=== PATIENT | female | born 1970 | race Caucasian/White ===

== ENCOUNTER 2018-11-26 09:58 | Day surgery (SDC) | payer BC ==
[2018-11-25 10:34] VITALS: BMI 19.3
--- NOTE | 2018-11-26 09:09 | P.GSHP ---
History of Present Illness H&P Date: 11/26/18 CHIEF COMPLAINT: Cholecystitis HISTORY OF PRESENT ILLNESS: The patient is a 48-year-old female who presents with history of epigastric including right upper quadrant abdominal pain. She underwent diagnostic studies for the gallbladder. Separately her clinical picture was consistent with cholecystitis. Now she presents for surgical intervention. PAST MEDICAL HISTORY: Please see list PAST SURGICAL HISTORY: Please see list MEDICATIONS: Please see list ALLERGIES: Denies. SOCIAL HISTORY: No illicit drug use or recent tobacco use FAMILY HISTORY: Pertinent for gallbladder disease REVIEW OF ORGAN SYSTEMS: CONSTITUTIONAL: No reports of fevers or chills. HEENT: Denies any troubles with the vision or hearing. ENDOCRINE: No reports of hypothyroidism. No diabetes. RESPIRATORY: No recent pneumonias. CARDIOVASCULAR: Denies chest pain or palpitations GI: No blood in stools or constipation. MUSCULOSKELETAL: Has occasional joint pain including back pain. NEURO: No seizure disorders or headaches. No recent stroke. PSYCH: No depression or suicidal ideation. HEMATOLOGIC: No personal or family history of DVTs or pulmonary emboli. PHYSICAL EXAM: VITAL SIGNS: Afebrile vital signs stable GENERAL: Well-developed pleasant in no acute distress. HEENT: No scleral icterus. Extraocular movements grossly intact. Moist buccal mucosa. NECK: Supple without lymphadenopathy. CHEST: Unlabored respirations. Equal bilateral excursions. CARDIOVASCULAR: Regular rate regular rhythm rhythm. Distal 2+ pulses. ABDOMEN: Soft, nondistended. Tender along the epigastrium and right upper quadrant. MUSCULOSKELETAL: No clubbing, cyanosis, or edema. NEURO : No focal or lateralizing signs. Cranial nerves II-12 within normal limits. PSYCH: Alert and oriented to person, place and time. SKIN: Well perfused. Good skin turgor. ASSESSMENT: 1. Epigastric and right upper quadrant abdominal pain 2. Chronic cholecystitis PLAN: 1. Will need a robotic cholecystectomy possible open. Benefits and risks were described. 2. Heparin for DVT prophylaxis 5000 units. 3. Antibiotic prophylaxis. Past Medical History Past Medical History: GERD/Reflux Additional Past Medical History / Comment(s): FREQUENT UTI'S, GALL BLADDER PAIN , UMBILICAL HERNIA. History of Any Multi-Drug Resistant Organisms: None Reported Past Surgical History: Section, Uterine Ablation Additional Past Surgical History / Comment(s): X3 Past Anesthesia/Blood Transfusion Reactions: No Reported Reaction Past Psychological History: No Psychological Hx Reported Smoking Status: Current every day smoker Past Alcohol Use History: None Reported Additional Past Alcohol Use History / Comment(s): SMOKES 1 PPD, SMOKING FOR 20 YEARS. Past Drug Use History: None Reported - Past Family History Mother Family Medical History: No Reported History Medications and Allergies Home Medications Medication Instructions Recorded Confirmed Type Ibuprofen [Motrin] 800 mg PO Q8HR PRN 11/25/18 11/25/18 History Pantoprazole [Protonix] 40 mg PO DAILY 11/25/18 11/25/18 History Allergies Allergy/AdvReac Type Severity Reaction Status Date / Time No Known Allergies Allergy Verified 11/25/18 10:12
[~2018-11-26 09:58] MED LIST: ACETAMINOPHEN IVPB ONE; DEXAMETHASONE SOD PHOSPHATE 10 MG/ML 1 ML VIAL IV ONE; HEPARIN SODIUM,PORCINE 5,000 UNIT/ML 1 ML VIAL SQ ONE; HYDROmorphone 0.5 MG/0.5 ML SYRINGE IVP PRN; INDOCYANINE GREEN 25 MG VIAL IV STA; LIDOCAINE 1% 20 ML VIAL (10MG/ML) FOR IV START INTRADERMA PRN; MIDAZOLAM (PF) 2 MG/2 ML VIAL IV PRN; ONDANSETRON 4 MG/2 ML VIAL IVP ONE; SCOPOLAMINE 1.5MG/72HR PATCH TRANSDERM ONE; SCOPOLAMINE 1.5MG/72HR PATCH TRANSDERM STA; ceFAZolin IN SWFI 2 GM/20 ML SYRINGE IVP ONE
[2018-11-26] MEDS: LACTATED RINGERS 1,000 ML IV SCH ×3 (10:36→11:08)
[2018-11-26 10:52] LABS: Basophils # (A) 0.1 k/uL (0-0.2); Basophils % (A) 1 %; Eosinophils # (A) 0.3 k/uL (0-0.7); Eosinophils % (A) 4 %; HCT 44.3 % (34.0-46.0); HGB 14.7 gm/dL (11.4-16.0); Lymphocytes # (A) 1.6 k/uL (1.0-4.8); Lymphocytes % (A) 27 %; MCHC 33.2 g/dL (31.0-37.0); MCV 87.4 fL (80.0-100.0); Mean Platelet Volume 7.5; Monocytes # (A) 0.3 k/uL (0-1.0); Monocytes % (A) 5 %; Neutrophils # (A) 3.5 k/uL (1.3-7.7); Neutrophils % (A) 60 %; Platelet Count 230 k/uL (150-450); RBC 5.07 m/uL (3.80-5.40); RDW 13.2 % (11.5-15.5); WBC 5.8 k/uL (3.8-10.6)
[2018-11-26 11:18] LABS: ALT 23 U/L (9-52); AST 16 U/L (14-36); Albumin 4.1 g/dL (3.5-5.0); Alkaline Phosphatase 56 U/L (38-126); Anion Gap 6 mmol/L; Blood Urea Nitrogen 15 mg/dL (7-17); Carbon Dioxide 23 mmol/L (22-30); Chloride 110 mmol/L (98-107); Glucose 88 mg/dL (74-99); Potassium 4.3 mmol/L (3.5-5.1); Sodium 139 mmol/L (137-145); Total Bilirubin 0.7 mg/dL (0.2-1.3); Total Protein 7.4 g/dL (6.3-8.2)
[2018-11-26] MEDS ORDERED: MIDAZOLAM 2 MG/2 ML VIAL ONE (14:34)
[2018-11-26] MEDS ORDERED: NEOSTIGMINE 1 MG/ML 10 ML VIAL ONE (14:34)
[2018-11-26] MEDS ORDERED: GLYCOPYRROLATE 0.2 MG/ML 2 ML VIAL ONE (14:34)
[2018-11-26] MEDS ORDERED: fentaNYL (PF) 50 MCG/ML 2 ML AMP ONE (14:34)
[2018-11-26] MEDS ORDERED: PROPOFOL 10 MG/ML 20 ML VIAL IV ONE (14:34)
[2018-11-26] MEDS ORDERED: ROCURONIUM BROMIDE 10 MG/ML 10 ML VIAL IV ONE (14:34)
[2018-11-26] MEDS ORDERED: LIDOCAINE 1% INJ 10MG/ML (20 ML MDV) ONE (14:34)
[2018-11-26] MEDS ORDERED: LACTATED RINGERS 1,000 ML IV ONE (14:58)
[2018-11-26] MEDS ORDERED: BUPIVACAIN-EPI 0.25%-1:200,000 30 ML VIAL SQ ONE (15:13)
[2018-11-26] MEDS ORDERED: MEPERIDINE 50 MG/ML SYRINGE IVP ONE ×2 (16:11→16:20)
--- NOTE | 2018-11-26 16:12 | P.OP ---
Date of Procedure: 11/26/18 Description of Procedure: SURGEON: MORENA KHAN MD PREOPERATIVE DIAGNOSES: 1. Right upper quadrant abdominal pain 2. Chronic cholecystitis 3. Gastroesophageal reflux disease POSTOPERATIVE DIAGNOSES: 1. Right upper quadrant abdominal pain 2. Chronic cholecystitis 3. Gastroesophageal reflux disease 4. Moderate to severe peritoneal adhesions along gallbladder OPERATION: Robotic-assisted da Bob Xi laparoscopic cholecystectomy, multiport with FIREFLY ESTIMATED BLOOD LOSS: 5 mL. SPECIMENS REMOVED: Gallbladder. COMPLICATIONS: None. OPERATIVE FINDINGS: 1. Chronic cholecystitis 2. Moderate to severe peritoneal adhesions along gallbladder INDICATIONS: The patient is a 48-year-old female who presents with cholelcystitis. Surgical intervention with a laparoscopic cholecystectomy was described at length including injury to the biliary tree, bleeding, infection, need for further surgery. Informed consent was obtained. Robotic assisted laparoscopic approach was described. Benefits and risks of the procedure including but not limited to bleeding, infection, injury to the biliary tree was described. Informed consent was obtained. DESCRIPTION OF PROCEDURE: Patient was brought to the operating room, placed in supine position. After general induction, the abdomen had been prepped and draped in standard sterile fashion. The robotic da Bob XI system was primed. After a timeout protocol was performed, the patient had been prepped and draped in standard sterile fashion. The patient was injected with indocyanine green. A 5 mm 0 degrees laparoscopic trocar entry was performed along the left upper quadrant. The abdomen insufflated to 15 mmHg pressure which was tolerated well. Diagnostic laparoscopy demonstrated no injury to bowel viscera or mesentery. The liver surface was unremarkable. Next, two 8 mm robotic ports were placed along the right upper abdomen. The camera 8-mm port was maintained along the epigastrium. Another 8 mm port was placed along the left upper abdominal wall after exchanging the 5 mm port. Please note that the ports were placed at least 10 to 15 cm away from the target anatomy of the gallbladder. The robot was docked along the left lateral abdomen. The patient was repositioned in reverse Trendelenburg position. Using a grasper for arm 3, a grasper for arm 4, including hook cautery for arm 1 , the robotic system was docked and primed as described. Instruments were interchanged by the mailing machine assistant including hook cautery, Bovie cautery and clip appliers. I had sat at the console. The gallbladder fundus was retracted over the dome of the liver. Moderate to severe peritoneal adhesions about the gallbladder was identified consistent with chronic cholecystitis. Lysis of adhesions was performed to free the gallbladder surrounding structures. Initial attention was brought to the infundibulum which was gently retracted in the inferior lateral approach. Using a grasper, the cystic duct including the cystic artery was carefully skeletonized. FIREFLY was used to identify the cystic artery and cystic structures. Large PLASTIC clips were used throughout the entire case. Using a clip sales order specialist 1 clip was placed proximally, and 1 clip was placed distally along the cystic duct and then cauterized with the cautery. Again care was taken to avoid any injury to the biliary tree as the common bile duct was clearly visualized during this portion of dissection. Next, the cystic artery was similarly clipped and cauterized. Electro-Bovie cautery was used to remove the gallbladder from the hepatic fossa. Hemostasis was checked and found to be adequate. The robot was undocked. I re-scrubbed into the case. Using a 10 mm Endo Catch bag via the left upper quadrant incision, the specimen was removed from the abdominal cavity. All pneumoperitoneum instruments were evacuated from the abdominal cavity. The incisions were reapproximated using 4-0 Monocryl in an interrupted subcuticular fashion. Fascial defects were less than 8 mm in size. Please note along the trocar sites, local anesthetic was placed as a field block prior to insertion of all instruments. Liquid glue was applied to the skin. At the end of the procedure needle, sponge, and instrument count had been verified correct by the salesperson surgical appliances. The patient was transferred to postanesthesia care unit in stable condition. Intraoperative films were shared with the patient's family who were very pleased with the level of care. Plan - Discharge Summary New Discharge Prescriptions: New HYDROcodone/APAP 5-325MG [[place] 5-325] 1 tab PO Q4HR PRN 3 Days #18 tab PRN Reason: Pain Ibuprofen [Motrin] 600 mg PO Q8HR PRN #30 tab PRN Reason: Pain No Action Pantoprazole [Protonix] 40 mg PO DAILY Ibuprofen [Motrin] 800 mg PO Q8HR PRN PRN Reason: Pain Discharge Medication List Ibuprofen [Motrin] 800 mg PO Q8HR PRN 11/25/18 [History] Pantoprazole [Protonix] 40 mg PO DAILY 11/25/18 [History] HYDROcodone/APAP 5-325MG [[place] 5-325] 1 tab PO Q4HR PRN 3 Days #18 tab [Rx] Ibuprofen [Motrin] 600 mg PO Q8HR PRN #30 tab 11/26/18 [Rx] Follow up Appointment(s)/Referral(s): Morena Khan MD [STAFF PHYSICIAN] - 12/09/18 (Please call to confirm time) Patient Instructions/Handouts: Laparoscopic Cholecystectomy (DC), Low Fat Diet (DC) Activity/Diet/Wound Care/Special Instructions: No lifting over 10 pounds one week. May shower. No bath tub soaks. Recommend low-fat diet for 2 days. Discharge Disposition: HOME SELF-CARE
[2018-11-26 16:52] VITALS: TEMP 98.1
[2018-11-26] MEDS ORDERED: HYDROcodone/APAP 5-325MG 1 EACH TAB PO ONE (17:30)
[2018-11-26 17:38] VITALS: BP 105/78; PULSE 98; RESP 18
== END 2018-11-26 18:20 | disposition home or self-care (01) ==
LOC: OR 09:58
PROVIDERS: ATTEND Surgery Plastic and Reconstructive Surgery
DX: K81.1 Chronic cholecystitis (principal); K21.9 Gastro-esophageal reflux disease without esophagitis; K66.0 Peritoneal adhesions (postprocedural) (postinfection); F17.210 Nicotine dependence, cigarettes, uncomplicated; Z87.440 Personal history of urinary (tract) infections; Z79.899 Other long term (current) drug therapy
CPT/HCPCS: 47563; S2900; 80053; 81025; 85025; 88304

== ENCOUNTER → 2019-03-17 | Outpatient (CLI) | payer BC ==
--- NOTE | 2019-03-17 11:34 | CT ---
EXAMINATION TYPE: CT abdomen pelvis w con DATE OF EXAM: 03/17/2019 COMPARISON: None HISTORY: Periumbilical pain, nausea, diarrhea. CT DLP: 292.7 mGycm CONTRAST: CT scan of the abdomen and pelvis is performed with Oral Contrast and with IV Contrast, patient injec shana with 100 mL of Isovue 300. FINDINGS: LUNG BASES-: Pulmonary nodules noted at the lung base measuring 4.3 mm right lower lobe, right lower lobe pleural-based measuring 3.5 mm, left lower lobe pleural-based measuring 4 mm, left lower lobe nguyen bpleural location of [address] of the chest is advised. LIVER/GB: The gallbladder appears to be surgically absent. No space occupying hepatic lesion. Bili melisa tree is of normal caliber. PANCREAS: No inflammation. No distinct mass. SPLEEN: No splenic enlargement. No lesion seen. ADRENALS: No nodule. No thickening. KIDNEYS/BLADDER: No hydronephrosis. No nephrolithiasis. No distinct solid renal mass. Small corti munira cyst upper pole right kidney measuring 1 cm. Urinary bladder grossly unremarkable. BOWEL: I cannot exclude a small sliding-type hiatal hernia. Normal appendix. Normal bowel caliber. No inflammation. GENITAL ORGANS: No gross abnormality. LYMPH NODES: No greater than 1cm abdominal or pelvic lymph nodes are appreciated. AORTA: No significant abnormality. OSSEOUS STRUCTURES: No significant abnormality is seen. OTHER: No significant additional abnormality is seen. IMPRESSION: 1. Nonspecific basilar pulmonary nodules require further evaluation with CT chest. 2. Small sliding-type hiatal hernia is difficult to exclude.
== END ==
LOC: RADCTMAIN 09:06
PROVIDERS: ATTEND Surgery Plastic and Reconstructive Surgery
DX: K44.9 Diaphragmatic hernia without obstruction or gangrene (principal); R91.8 Other nonspecific abnormal finding of lung field
CPT/HCPCS: 74177; 36415; Q9967

== ENCOUNTER 2019-03-19 10:27 | Day surgery (SDC) | payer BC ==
[2019-03-17 14:09] VITALS: BMI 19.2
--- NOTE | 2019-03-18 20:39 | P.GSHP ---
History of Present Illness H&P Date: 03/19/19 CHIEF COMPLAINT: GERD HISTORY OF PRESENT ILLNESS: The patient is a 48-year-old female who presents reports gastroesophageal reflux disease. Upper endoscopy was offered for further evaluation and management. PAST MEDICAL HISTORY: Please see list. PAST SURGICAL HISTORY: Please see list. MEDICATIONS: Please see list. ALLERGIES: Please see list. SOCIAL HISTORY: No illicit drug use FAMILY HISTORY: No reports of Crohn disease or ulcerative colitis. REVIEW OF ORGAN SYSTEMS: CONSTITUTIONAL: No reports of fevers or chills. GI: Denies any blood in stools or constipation. PHYSICAL EXAM: VITAL SIGNS: Stable GENERAL: Well-developed and pleasant in no acute distress. HEENT: No scleral icterus. Extraocular movements grossly intact. Moist buccal mucosa. NECK: Supple without lymphadenopathy. CHEST: Unlabored respirations. Equal bilateral excursions. CARDIOVASCULAR: Regular rate and rhythm. Distal 2+ pulses. ABDOMEN: Soft, nondistended. MUSCULOSKELETAL: No clubbing, cyanosis, or edema. ASSESSMENT: 1. Gastroesophageal reflux disease PLAN: 1. Recommend proceeding with an upper endoscopy Past Medical History Past Medical History: Blood Disorder, GERD/Reflux Additional Past Medical History / Comment(s): FREQUENT UTI'S, UMBILICAL HERNIA., has 1 of the Factor 5 genes History of Any Multi-Drug Resistant Organisms: None Reported Past Surgical History: Section, Cholecystectomy, Uterine Ablation Additional Past Surgical History / Comment(s): X3 Past Anesthesia/Blood Transfusion Reactions: No Reported Reaction Smoking Status: Current every day smoker - Past Family History Mother Family Medical History: No Reported History Medications and Allergies Home Medications Medication Instructions Recorded Confirmed Type Ibuprofen [Motrin] 800 mg PO Q8HR PRN 11/25/18 03/17/19 History Omeprazole 20 mg PO DAILY 03/17/19 03/17/19 History Allergies Allergy/AdvReac Type Severity Reaction Status Date / Time No Known Allergies Allergy Verified 03/17/19 14:07
[~2019-03-19 10:27] MED LIST changes: -ACETAMINOPHEN IVPB ONE; -DEXAMETHASONE SOD PHOSPHATE 10 MG/ML 1 ML VIAL IV ONE; -HEPARIN SODIUM,PORCINE 5,000 UNIT/ML 1 ML VIAL SQ ONE; -HYDROmorphone 0.5 MG/0.5 ML SYRINGE IVP PRN; -INDOCYANINE GREEN 25 MG VIAL IV STA; +LACTATED RINGERS 1,000 ML IV SCH; -MIDAZOLAM (PF) 2 MG/2 ML VIAL IV PRN; -ONDANSETRON 4 MG/2 ML VIAL IVP ONE; -SCOPOLAMINE 1.5MG/72HR PATCH TRANSDERM ONE; -SCOPOLAMINE 1.5MG/72HR PATCH TRANSDERM STA; -ceFAZolin IN SWFI 2 GM/20 ML SYRINGE IVP ONE
[2019-03-19 11:07] VITALS: TEMP 98
[2019-03-19 11:23] LABS: Basophils # (A) 0.1 k/uL (0-0.2); Basophils % (A) 1 %; Eosinophils # (A) 0.2 k/uL (0-0.7); Eosinophils % (A) 3 %; HCT 43.5 % (34.0-46.0); HGB 14.3 gm/dL (11.4-16.0); Lymphocytes # (A) 1.6 k/uL (1.0-4.8); Lymphocytes % (A) 23 %; MCH 28.7 pg (25.0-35.0); MCHC 32.9 g/dL (31.0-37.0); MCV 87.3 fL (80.0-100.0); Monocytes # (A) 0.5 k/uL (0-1.0); Monocytes % (A) 7 %; Neutrophils # (A) 4.3 k/uL (1.3-7.7); Neutrophils % (A) 64 %; Platelet Count 282 k/uL (150-450); RBC 4.99 m/uL (3.80-5.40); WBC 6.8 k/uL (3.8-10.6)
[2019-03-19 11:40] LABS: ALT 18 U/L (9-52); AST 18 U/L (14-36); Albumin 4.2 g/dL (3.5-5.0); Alkaline Phosphatase 59 U/L (38-126); Amylase 52 U/L (30-110); Anion Gap 7 mmol/L; Blood Urea Nitrogen 13 mg/dL (7-17); Calcium 9.2 mg/dL (8.4-10.2); Carbon Dioxide 22 mmol/L (22-30); Chloride 109 mmol/L (98-107); Glucose 86 mg/dL (74-99); Lipase 84 U/L (23-300); Sodium 138 mmol/L (137-145); Total Bilirubin 0.7 mg/dL (0.2-1.3); Total Protein 7.3 g/dL (6.3-8.2)
[2019-03-19 11:47] LABS: Potassium 4.9 mmol/L (3.5-5.1)
[2019-03-19] MEDS ORDERED: GLYCOPYRROLATE 0.2 MG/ML 2 ML VIAL ONE (11:50)
[2019-03-19] MEDS ORDERED: LIDOCAINE 1% INJ 10MG/ML (20 ML MDV) ONE (11:50)
[2019-03-19] MEDS ORDERED: PROPOFOL 10 MG/ML 20 ML VIAL IV ONE (11:50)
--- NOTE | 2019-03-19 12:09 | P.PCN ---
Date of Procedure: 03/19/19 Description of Procedure: PREOPERATIVE DIAGNOSIS: Gastroesophageal reflux disease. Epigastric abdominal pain POSTOPERATIVE DIAGNOSIS: Gastroesophageal reflux disease. Epigastric abdominal pain Diaphragmatic hiatal hernia Gastritis, chronic Duodenitis OPERATION: Esophagogastroduodenoscopy with cold forceps biopsies along antrum and duodenum SURGEON: Morena Khan MD ANESTHESIA: MAC. INDICATIONS: The patient is a 48-year-old female who presents with a history of reflux disease. Benefits and risks of the procedure were described. Informed consent was obtained. DESCRIPTION: The patient was brought into the endoscopy suite and laid in the left lateral decubitus position. An Olympus gastroscope was passed along the posterior oropharynx down to the distal esophagus where the squamocolumnar junction was encountered at 38 cm from the incisors. The stomach was entered and no bile reflux was found. Additional findings are listed below. Biopsies with cold forceps were obtained of the antrum. The first through third portion of the duodenum was examined and remarkable for duodenitis. Biopsies obtained. Retroflexion of the scope confirmed Hill grade 3 lower esophageal valve. The squamocolumnar junction demonstrated LA grade B erosive esophagitis. The stomach was desufflated. The patient tolerated the procedure well. FINDINGS: Squamocolumnar junction 38 cm from the incisors. Diaphragmatic hiatus at 39 cm. Hiatal hernia, 1 cm Hill grade 3 lower esophageal valve. LA grade B erosive esophagitis. Active duodenitis. Chronic gastritis with recent bleed RECOMMENDATIONS: Upper endoscopy as needed. Plan - Discharge Summary Discharge Rx Participant: Yes New Discharge Prescriptions: No Action Ibuprofen [Motrin] 800 mg PO Q8HR PRN PRN Reason: Pain Omeprazole 20 mg PO DAILY Discharge Medication List Ibuprofen [Motrin] 800 mg PO Q8HR PRN 11/25/18 [History] Omeprazole 20 mg PO DAILY 03/17/19 [History] Follow up Appointment(s)/Referral(s): Morena Khan MD [STAFF PHYSICIAN] - 04/07/19 Patient Instructions/Handouts: Hiatal Hernia (ED), Gastritis (DC), Duodenitis (DC) Discharge Disposition: HOME SELF-CARE
[2019-03-19 12:39] VITALS: BP 99/56; PULSE 68; RESP 18
== END 2019-03-19 12:40 | disposition home or self-care (01) ==
LOC: ORWHC2ENDO 10:27
PROVIDERS: ATTEND Surgery Plastic and Reconstructive Surgery
DX: K29.50 Unspecified chronic gastritis without bleeding (principal); K44.9 Diaphragmatic hernia without obstruction or gangrene; K29.80 Duodenitis without bleeding; K21.9 Gastro-esophageal reflux disease without esophagitis; F17.200 Nicotine dependence, unspecified, uncomplicated; Z79.899 Other long term (current) drug therapy
CPT/HCPCS: 88305; 80053; 82150; 83690; 85025; 43239; J2001; J2704

== ENCOUNTER → 2019-09-23 | Outpatient (CLI) | payer BC ==
--- NOTE | 2019-09-23 11:04 | FL ---
ESOPHOGRAM. HISTORY: Dysphagia Esophagram was performed per the air contrast technique. The patient swallowed barium and effervesce nt crystals without difficulty or delay. Esophageal peristalsis and motility appear to be within normal limits. There is no evidence for filling defect, mass or diverticulum. No hiatal hernia seen. Subsequently single contrast cervical esophagram was performed which fails demonstrate evidence for a spiration penetration or mass. IMPRESSION: Unremarkable study.
== END | disposition home or self-care (01) ==
LOC: RADUSWWP 09:40
PROVIDERS: ATTEND Surgery Plastic and Reconstructive Surgery
DX: R13.10 Dysphagia, unspecified (principal)
CPT/HCPCS: 74220

== ENCOUNTER 2024-12-05 19:27 | Observation (INO) | payer MEDICARE, OTHER ==
--- NOTE | 2024-12-05 19:37 | ED ---
General Adult HPI - General Chief complaint: Weakness Stated complaint: Possible TIA Time Seen by Provider: 12/05/24 19:28 Source: patient, EMS Mode of arrival: EMS Limitations: no limitations - History of Present Illness Initial comments: Patient presents to the ED by EMS for evaluation. Patient states that she awoke at about 0630 this morning and noticed that she was having difficulty getting up due to bilateral leg weakness. Patient states that her symptoms then improved, and she was able to ambulate as per usual. Patient states that she took a nap this afternoon, and awoke again with bilateral lower leg weakness and inability to ambulate. Patient states that these symptoms again improved at about 1500 this afternoon. Patient states that she is now at her baseline. Patient states that she has a history of MS, and she also states that she has chronic right- sided weakness from a prior stroke. Patient also states that she has had a sli ght cough over the past couple of days. Patient denies having any pain, fever or chills, headache, focal numbness, visual changes, speech difficulty, neck/back/extremity pain, chest pain, dyspnea, hemoptysis, palpitations, dizziness, abdominal pain, nausea or vomiting, diarrhea, bloody or melanotic stool, dysuria or urinary symptoms, or any other symptoms or complaints. - Related Data Home Medications Medication Instructions Recorded Confirmed Ibuprofen [Motrin] 800 mg PO Q8HR PRN 11/25/18 03/19/19 Omeprazole 20 mg PO DAILY 03/17/19 03/17/19 Allergies Allergy/AdvReac Type Severity Reaction Status Date / Time No Known Allergies Allergy Verified 12/05/24 19:36 Review of Systems ROS Statement: Those systems with pertinent positive or pertinent negative responses have been documented in the HPI. ROS Other: All systems not noted in ROS Statement are negative. Past Medical History Past Medical History: GERD/Reflux Additional Past Medical History / Comment(s): FREQUENT UTI'S, GALL BLADDER PAIN, UMBILICAL HERNIA. History of Any Multi-Drug Resistant Organisms: None Reported Past Surgical History: Section, Uterine Ablation Additional Past Surgical History / Comment(s): X3 Past Anesthesia/Blood Transfusion Reactions: No Reported Reaction Past Psychological History: No Psychological Hx Reported Past Alcohol Use History: None Reported Past Drug Use History: None Reported - Past Family History Mother Family Medical History: No Reported History General Exam Limitations: no limitations General appearance: alert, in no apparent distress Head exam: Present: atraumatic, normocephalic Eye exam: Present: normal appearance, PERRL Pupils: Present: normal accommodation ENT exam: Present: normal oropharynx, mucous membranes moist Neck exam: Present: other (Trachea is in midline). Absent: tenderness, meningismus Respiratory exam: Present: normal lung sounds bilaterally. Absent: respiratory distress, wheezes, rales, rhonchi, stridor Cardiovascular Exam: Present: regular rate, normal rhythm, normal heart sounds, other (Normal radial pulses bilaterally) GI/Abdominal exam: Present: soft. Absent: distended, tenderness, guarding Extremities exam: Absent: tenderness, pedal edema, calf tenderness Back exam: Absent: tenderness Neurological exam: Present: alert, oriented X3, other (Normal sensation in all 4 extremities; right upper extremity drift; 4/5 strength in right upper extremity; 3/5 strength in right lower extremity; 5/5 strength in left upper and lower extremities). Absent: CN II-XII intact Psychiatric exam: Present: normal affect Skin exam: Present: warm, dry, normal color Course Vital Signs 12/05/24 19:28 Temperature 98.6 F Pulse Rate 113 H Respiratory 18 Rate Blood Pressure 131/89 O2 Sat by Pulse 98 Oximetry - Reevaluation(s) Reevaluation #1: 12/05/24 21:19 Case, H&P, test results and ED management thus far were discussed with Dr. Mejia. He accepts hospital admission. He agrees with neurology consultation. He has no further recommendations at this time. 12/05/24 21:28 Patient's neurological exam is unchanged from her exam at initial ED presentation today. Patient denies development of any new symptoms while in the ED. Patient is aware of her test results, and she agrees with hospital admission at this time. EKG Findings - EKG Comments: EKG Findings:: ED physician interpretation (interpreted by me): Borderline sinus tachycardia, ventricular rate of 101 bpm, no ectopy, normal KS and QRS intervals, normal QT interval, normal axis, no ST or T wave abnormality Medical Decision Making - Medical Decision Making Was pt. sent in by a medical professional or institution (, PA, OUTSIDE INSTALLER APPRENTICE, urgent care, hospital, or shelter...) When possible be specific @ -No Did you speak to anyone other than the patient for history (EMS, parent, family, police, friend...)? What history was obtained from this source @ -No Did you review nursing and triage notes (agree or disagree)? Why? @ -I reviewed and agree with nursing and triage notes Were old charts reviewed (outside hosp., previous admission, EMS record, old EKG, old radiological studies, urgent care reports/EKG's, shelter records)? Report findings @ -No old charts were reviewed Differential Diagnosis (chest pain, altered mental status, abdominal pain women, abdominal pain men, vaginal bleeding, weakness, fever, dyspnea, syncope, headache, dizziness, GI bleed, back pain, seizure, CVA, palpatations, mental health, musculoskeletal)? @ -Extremity weakness, TIA, CVA, MS, radiculopathy, herniated disc disease, neuropathy, myelitis, intracranial hemorrhage, intracranial mass, electrolyte abnormality, this is not meant to be a complete list. EKG interpreted by me (3pts min.). @ -As above X-rays interpreted by me (1pt min.). @ -Chest x-ray was reviewed myself and shows no acute abnormality. CT interpreted by me (1pt min.). @ -Noncontrast head CT was reviewed myself and shows no acute intracranial abnormality. I agree with the radiologist's interpretation as above. U/S interpreted by me (1pt. min.). @ -None done What testing was considered but not performed or refused? (CT, X-rays, U/S, labs)? Why? @ -None What meds were considered but not given or refused? Why? @ -None Did you discuss the management of the patient with other professionals (professionals i.e. , PA, OUTSIDE INSTALLER APPRENTICE, lab, RT, psych nurse, social services director, dining car waiter/waitress, teacher, banking services officer, case checker)? Give summary @ -As above. Was smoking cessation discussed for >3mins.? @ -No Was critical care preformed (if so, how long)? @ -No Were there social determinants of health that impacted care today? How? (Homelessness, low income, unemployed, alcoholism, drug addiction, transportation, low edu. Level, literacy, decrease access to med. care, [facility], rehab)? @ -No Was there de-escalation of care discussed even if they declined (Discuss DNR or withdrawal of care, Hospice)? DNR status @ -No What co-morbidities impacted this encounter? (DM, HTN, Smoking, COPD, CAD, Cancer, CVA, ARF, Chemo, Hep., AIDS, mental health diagnosis, sleep apnea, morbid obesity)? @ -MS, prior stroke Was patient admitted / discharged? Hospital course, mention meds given and route, prescriptions, significant lab abnormalities, going to OR and other pertinent info. @ -Patient reports having transient bilateral lower extremity weakness. Patient has baseline right lower extremity and right upper extremity weakness from a prior stroke. Patient is currently at her baseline neurological status. Patient's head CT shows no acute intracranial abnormality. Patient's labs are fairly unremarkable. Will admit the patient to the hospital for further evaluation and neurology consultation. Patient agrees with this plan. Dr. Mejia has accepted hospital admission. Undiagnosed new problem with uncertain prognosis? @ -No Drug Therapy requiring intensive monitoring for toxicity (Heparin, Nitro, Insulin, Cardizem)? @ -No Were any procedures done? @ -No Diagnosis/symptom? @ -Transient lower extremity weakness, possible TIA Acute, or Chronic, or Acute on Chronic? @ -Acute Uncomplicated (without systemic symptoms) or Complicated (systemic symptoms)? @ -Default Side effects of treatment? @ -No Exacerbation, Progression, or Severe Exacerbation? @ -No Poses a threat to life or bodily function? How? (Chest pain, USA, LA, pneumonia, PE, COPD, DKA, ARF, appy, cholecystitis, CVA, Diverticulitis, Homicidal, Suicidal, threat to staff... and all critical care pts) @ -No - Lab Data Result diagrams: 12/05/24 20:07 12/05/24 20:07 Lab Results 12/05/24 12/05/24 12/05/24 Range/Units 20:07 20:07 20:07 WBC 5.9 (3.8-10.6) k/uL RBC 3.84 (3.80-5.40) m/uL Hgb 11.4 (11.4-16.0) gm/dL Hct 33.1 L (34.0-46.0) % MCV 86.1 (80.0-100.0) fL MCH 29.8 (25.0-35.0) pg MCHC 34.6 (31.0-37.0) g/dL RDW 12.7 (11.5-15.5) % Plt Count 230 (150-450) k/uL MPV 8.9 Neutrophils % 83 % Lymphocytes % 7 % Monocytes % 8 % Eosinophils % 1 % Basophils % 0 % Neutrophils # 4.9 (1.3-7.7) k/uL Lymphocytes # 0.4 L (1.0-4.8) k/uL Monocytes # 0.5 (0-1.0) k/uL Eosinophils # 0.1 (0-0.7) k/uL Basophils # 0.0 (0-0.2) k/uL PT 10.5 (10.0-12.5) sec INR 0.9 (<1.2) APTT 27.2 (22.0-30.0) sec Sodium 129 L (137-145) mmol/L Potassium 4.4 (3.5-5.1) mmol/L Chloride 99 (98-107) mmol/L Carbon Dioxide 22 (22-30) mmol/L Anion Gap 8 mmol/L BUN 9 (7-17) mg/dL Creatinine 0.68 (0.52-1.04) mg/dL Est GFR (CKD-EPI)AfAm >90 (>60 ml/min/1.73 sqM) Est GFR (CKD-EPI)NonAf >90 (>60 ml/min/1.73 sqM) Glucose 122 H (74-99) mg/dL Calcium 8.6 (8.4-10.2) mg/dL Total Bilirubin 0.5 (0.2-1.3) mg/dL AST 32 (14-36) U/L ALT 22 (4-34) U/L Alkaline Phosphatase 64 (38-126) U/L Troponin I (0.000-0.034) ng/mL Total Protein 6.3 (6.3-8.2) g/dL Albumin 3.7 (3.5-5.0) g/dL 12/05/24 Range/Units 20:07 WBC (3.8-10.6) k/uL RBC (3.80-5.40) m/uL Hgb (11.4-16.0) gm/dL Hct (34.0-46.0) % MCV (80.0-100.0) fL MCH (25.0-35.0) pg MCHC (31.0-37.0) g/dL RDW (11.5-15.5) % Plt Count (150-450) k/uL MPV Neutrophils % % Lymphocytes % % Monocytes % % Eosinophils % % Basophils % % Neutrophils # (1.3-7.7) k/uL Lymphocytes # (1.0-4.8) k/uL Monocytes # (0-1.0) k/uL Eosinophils # (0-0.7) k/uL Basophils # (0-0.2) k/uL PT (10.0-12.5) sec INR (<1.2) APTT (22.0-30.0) sec Sodium (137-145) mmol/L Potassium (3.5-5.1) mmol/L Chloride (98-107) mmol/L Carbon Dioxide (22-30) mmol/L Anion Gap mmol/L BUN (7-17) mg/dL Creatinine (0.52-1.04) mg/dL Est GFR (CKD-EPI)AfAm (>60 ml/min/1.73 sqM) Est GFR (CKD-EPI)NonAf (>60 ml/min/1.73 sqM) Glucose (74-99) mg/dL Calcium (8.4-10.2) mg/dL Total Bilirubin (0.2-1.3) mg/dL AST (14-36) U/L ALT (4-34) U/L Alkaline Phosphatase (38-126) U/L Troponin I 0.016 (0.000-0.034) ng/mL Total Protein (6.3-8.2) g/dL Albumin (3.5-5.0) g/dL - Radiology Data Noncontrast head CT: 1. No acute intracranial abnormality. 2. Significant prominence of the extra-axial spaces without evidence of acute subdural hematoma. Chest x-ray: No acute abnormality. Disposition Clinical Impression: Lower extremity weakness, Neurological symptoms Disposition: ADMITTED IP TO THIS [facility] Condition: Stable Is patient prescribed a controlled substance at d/c from ED?: No Referrals: Marc Trevizo MD [Primary Care Provider] - 1-2 days Time of Disposition: 21:20
[2024-12-05 20:34] LABS: Basophils % (A) 0 %; Eosinophils # (A) 0.1 k/uL (0-0.7); Eosinophils % (A) 1 %; HCT 33.1 % (34.0-46.0); HGB 11.4 gm/dL (11.4-16.0); Lymphocytes # (A) 0.4 k/uL (1.0-4.8); Lymphocytes % (A) 7 %; MCH 29.8 pg (25.0-35.0); MCHC 34.6 g/dL (31.0-37.0); MCV 86.1 fL (80.0-100.0); Mean Platelet Volume 8.9; Monocytes # (A) 0.5 k/uL (0-1.0); Monocytes % (A) 8 %; Neutrophils # (A) 4.9 k/uL (1.3-7.7); Neutrophils % (A) 83 %; Platelet Count 230 k/uL (150-450); RBC 3.84 m/uL (3.80-5.40); RDW 12.7 % (11.5-15.5); WBC 5.9 k/uL (3.8-10.6)
[2024-12-05 20:52] LABS: ALT 22 U/L (4-34); AST 32 U/L (14-36); African American GFR (CKD) >90 (>60 ml/min/1.73 sqM); Albumin 3.7 g/dL (3.5-5.0); Alkaline Phosphatase 64 U/L (38-126); Anion Gap 8 mmol/L; Blood Urea Nitrogen 9 mg/dL (7-17); Calcium 8.6 mg/dL (8.4-10.2); Carbon Dioxide 22 mmol/L (22-30); Chloride 99 mmol/L (98-107); Glucose 122 mg/dL (74-99); Non-African American GFR(CKD) >90 (>60 ml/min/1.73 sqM); Sodium 129 mmol/L (137-145); Total Bilirubin 0.5 mg/dL (0.2-1.3); Total Protein 6.3 g/dL (6.3-8.2)
--- NOTE | 2024-12-05 20:55 | CT ---
EXAMINATION TYPE: CT brain wo con DATE OF EXAM: 12/05/2024 8:26 PM COMPARISON: None. CLINICAL INDICATION: Female, 54 years old with history of Neuro deficit, acute, stroke suspected, pt. presenting with sx of tia, weaknes bilat lower extremeties TECHNIQUE: Brain: Axial CT images of the brain were obtained with coronal and sagittal reformats created and rev iewed. Contrast used: None. Oral contrast used: None. CT DLP: 1170 mGycm, Automated exposure control for dose reduction was used. FINDINGS: Brain: Extra-axial spaces: Significant prominence of the extra-axial spaces, particularly near the superior frontoparietal convexities. Vessel seen extending to the calvarial margin making chronic subdural flu id collection less likely. No acute subdural hematoma. Ventricular system: Dilatation in proportion to cerebral atrophy. Cerebral parenchyma: No acute intraparenchymal hemorrhage or mass effect. The street-white junction is well differentiated. Scattered hypoattenuating areas are seen within the white matter. Cerebellum: Unremarkable. Mass effect: No evidence of midline shift. Intracranial vasculature: unremarkable Soft tissues: Normal. Calvarium/osseous structures: No depressed skull fracture. Paranasal sinuses and mastoid air cells: Mild scattered paranasal sinus disease. Visualized orbits: Orbital contents are intact. IMPRESSION: 1. No acute intracranial abnormality. 2. Significant prominence of the extra-axial spaces without evidence of acute subdural hematoma. [facility], , 12/05/2024 8:53 PM
[2024-12-05 20:57] LABS: Potassium 4.4 mmol/L (3.5-5.1)
[2024-12-05] MEDS ORDERED: NALOXONE 0.4 MG/ML 1 ML VIAL IV PRN (21:21)
[2024-12-05 21:33] LABS: INR 0.9 (<1.2); Partial Thromboplastin Time 27.2 sec (22.0-30.0); Prothrombin Time 10.5 sec (10.0-12.5)
--- NOTE | 2024-12-05 21:38 | XR ---
EXAMINATION TYPE: XR chest 2V DATE OF EXAM: 12/05/2024 9:19 PM COMPARISON: None. CLINICAL INDICATION: Female, 54 years old with history of altered mental status; [facility] TECHNIQUE: XR chest 2V Frontal and lateral views of the chest. FINDINGS: Lungs/Pleura: There is no evidence of pleural effusion, focal consolidation, or pneumothorax. Pulmonary vascularity: Unremarkable. Heart/mediastinum: Cardiomediastinal silhouette is unremarkable. Musculoskeletal: No acute osseous pathology. Other findings: None IMPRESSION: No acute cardiopulmonary disease/process. [facility], , 12/05/2024 9:36 PM
[2024-12-05] MEDS: ASPIRIN 325 MG TAB PO STA (22:36)
--- NOTE | 2024-12-06 00:06 | P.HPIM ---
History of Present Illness H&P Date: 12/05/24 Chief Complaint: Bilateral leg weakness Patient is a 54-year-old female with past medical history of CVA in 2020 with chronic right-sided weakness and MS (follows with Dr Cortez) who presented to the ER with chief complaint of bilateral lower extremity weakness R>L. This beg an around 630 this morning when she was trying to get up from her bed. Patient states that her left leg was weak but has since returned to baseline around 3 PM today. Patient endorses chronic weakness on the right side, which is residual from the last stroke. Patient denies any history of diabetes or hypertension. Patient denies any slurred speech or facial drooping. Patient denies any chest pain, shortness of breath, sick contacts, headache, fever or chills, focal numbness, vision changes, palpitations, dizziness, nausea, vomiting, diarrhea. Patient denies history of seizures or blood thinner use. Vitals on admission temperature 98, heart rate 75 bpm, respiratory rate 16, blood pressure 109/63, O2 saturation 92% on room air EKG independently interpreted as sinus tachycardia with a rate of 101 bpm and QTc of 387 ms, no ST-T wave changes suggestive of ischemia CXR shows no acute cardiopulmonary disease CT of no acute intracranial abnormality, significant prominence of the extra- axial spaces without evidence of acute subdural hematoma Labs on admission show WBCs 5.9, hemoglobin 11.4, MCV 86.1, platelets 230. PT 10.5, INR 0.9, PTT 27.2. Sodium 129, potassium 4.4 (slight hemolysis), chloride 99, bicarb 22, BUN 9, creatinine 0.68, glucose 122. Calcium 8.6. LFTs within normal limits. Troponin negative. Review of systems: Pertinent positives and negatives as discussed in HPI, a complete review of systems was performed and all other systems are negative. Allergies: NKDA PCP: Dr. Trevizo Social history: Tobacco:<.5 packs a day 40 years Alcohol: none Recreational drugs: none Travel: none Sick contacts: none Physical examination: Vital signs reviewed General: nontoxic, no distress, appears at stated age, Derm: warm, dry, intact Head: atraumatic, normocephalic, symmetric Eyes: anicteric sclera Mouth: no lip lesion, mucus membranes moist Cardiovascular: S1 S2 reg, no murmur Lungs: CTA bilateral, no rhonchi, no rales, no accessory muscle use Abdominal: soft, non-tender to palpation, nondistended Extremities: No cyanosis, clubbing, or pedal edema. Neuro: Alert, Oriented to person, time and place, Gross neurological examination did not reveal any focal deficits. Cranial nerves II to XII grossly intact. No facial asymmetry. Left side LE 5/5, UE 4/5 Right side Lower extremity Hip passive ROM limited with active hip strength 2+/5 with all movements, Knee strength 3/5 with R. foot drop noted Psych: well appearing, appropriate affect Assessment/Plan: Patient is a 54-year-old female with history of prior stroke and MS who presented with chief complaint of bilateral lower extremity weakness. Case was discussed with ER physician and patient will be admitted to internal medicine service for further evaluation of TIA versus CVA. Active: TIA versus CVA (ABCD2 score 2) vs MS exacerbation (patient reports it has been fairly stable for several years without medications) Continue aspirin 81 mg daily Initiate Lipitor 80 mg daily Neurochecks per protocol Consult neurology Consult PT/OT Consult speech therapy Echocardiogram Cardiac monitoring Hyponatremia Continue IV fluids Continue to monitor Hyperglycemia in nondiabetic Continue to monitor If persistent, consider ISS Obtain A1c Chronic: May resume home meds once confirmed F: 0.9% NS at 75 mL/h E: Replete as needed N: Regular diet A: Fall precautions DVT prophylaxis: Lovenox 40 mg subcu daily The patient is admitted with an anticipated more than 2 midnight stay for evaluation of TIA versus CVA CODE STATUS: Full code Discussed with: Patient Anticipated discharge place: Pending clinical course Past Medical History Past Medical History: GERD/Reflux Additional Past Medical History / Comment(s): FREQUENT UTI'S, GALL BLADDER PAIN, UMBILICAL HERNIA. History of Any Multi-Drug Resistant Organisms: None Reported Past Surgical History: Section, Uterine Ablation Additional Past Surgical History / Comment(s): X3 Past Anesthesia/Blood Transfusion Reactions: No Reported Reaction Past Psychological History: No Psychological Hx Reported Past Alcohol Use History: None Reported Past Drug Use History: None Reported - Past Family History Mother Family Medical History: No Reported History Medications and Allergies Home Medications Medication Instructions Recorded Confirmed Type Ibuprofen [Motrin] 800 mg PO Q8HR PRN 11/25/18 03/19/19 History Omeprazole 20 mg PO DAILY 03/17/19 03/17/19 History Allergies Allergy/AdvReac Type Severity Reaction Status Date / Time No Known Allergies Allergy Verified 12/05/24 19:36 Physical Exam Vitals: Vital Signs Temp Pulse Resp BP Pulse Ox 12/05/24 19:28 98.6 F 113 H 18 131/89 98 Intake and Output 12/05/24 12/05/24 12/05/24 06:59 14:59 22:59 Other: Weight 60.328 kg Results CBC & Chem 7: 12/05/24 20:07 12/05/24 20:07 Labs: Abnormal Lab Results - Last 24 Hours (Table) 12/05/24 12/05/24 Range/Units 20:07 20:07 Hct 33.1 L (34.0-46.0) % Lymphocytes # 0.4 L (1.0-4.8) k/uL Sodium 129 L (137-145) mmol/L Glucose 122 H (74-99) mg/dL
[2024-12-06] MEDS: SODIUM CHLORIDE 0.9% 1,000 ML IV SCH (02:52)
[2024-12-06] MEDS: ACETAMINOPHEN TAB 325 MG TAB PO STA (03:39)
[2024-12-06] MEDS: SODIUM CHLORIDE 0.9% 1,000 ML IV STA (03:40)
[2024-12-06 05:09] LABS: Basophils % (A) 0 %; Eosinophils % (A) 1 %; HGB 11.4 gm/dL (11.4-16.0); Lymphocytes # (A) 0.3 k/uL (1.0-4.8); Lymphocytes % (A) 7 %; MCH 29.6 pg (25.0-35.0); MCHC 34.7 g/dL (31.0-37.0); MCV 85.4 fL (80.0-100.0); Mean Platelet Volume 8.5; Monocytes # (A) 0.5 k/uL (0-1.0); Monocytes % (A) 12 %; Neutrophils # (A) 3.5 k/uL (1.3-7.7); Neutrophils % (A) 79 %; Platelet Count 220 k/uL (150-450); RBC 3.86 m/uL (3.80-5.40); RDW 12.9 % (11.5-15.5); WBC 4.4 k/uL (3.8-10.6)
[2024-12-06 05:35] LABS: African American GFR (CKD) >90 (>60 ml/min/1.73 sqM); Anion Gap 7 mmol/L; Blood Urea Nitrogen 7 mg/dL (7-17); Calcium 8.2 mg/dL (8.4-10.2); Carbon Dioxide 20 mmol/L (22-30); Chloride 104 mmol/L (98-107); Glucose 100 mg/dL (74-99); Non-African American GFR(CKD) >90 (>60 ml/min/1.73 sqM); Potassium 4.1 mmol/L (3.5-5.1); Sodium 131 mmol/L (137-145)
[2024-12-06 05:51] LABS: Influenza A Not Detected (Not Detectd); Influenza B Not Detected (Not Detectd); RSV Not Detected (Not Detectd)
[2024-12-06 06:13] LABS: Appearance,Urine Cloudy (Clear); Bilirubin,Urine Negative (Negative); Blood,Urine Negative (Negative); Budding Yeast,Urine Moderate /hpf; Color,Urine Yellow; Glucose,Urine (UA) Negative (Negative); Hyaline Casts,Urine 2 /lpf (0-2); Ketones,Urine 2+ (Negative); Leukocyte Esterase,Urine Negative (Negative); Mucus,Urine Few /hpf; Nitrite,Urine Positive (Negative); PH, Urine 6.5 (5.0-8.0); Protein,Urine Trace (Negative); RBC,Urine 2 /hpf (0-5); Specific Gravity,Urine 1.016 (1.001-1.035); WBC,Urine 6 /hpf (0-5)
[2024-12-06] MEDS: ASPIRIN 81 MG PO SCH (09:01)
[2024-12-06] MEDS: DULoxetine HCL 30 MG CAPSULE.DR PO SCH (09:01)
[2024-12-06] MEDS: PANTOPRAZOLE 40 MG TABLET PO SCH (09:01)
[2024-12-06] MEDS: ENOXAPARIN 40 MG/0.4 ML SYRINGE SQ SCH (09:03)
[2024-12-06] MEDS: NON FORMULARY DRUG (Linaclotide [Linzess] 290 MCG Capsule) PO SCH (09:47)
[2024-12-06] MEDS: modafiniL 100 MG TAB PO SCH (09:47)
--- NOTE | 2024-12-06 11:20 | XR ---
EXAMINATION TYPE: XR chest 1V portable DATE OF EXAM: 12/06/2024 11:17 AM COMPARISON: Chest radiographs from 12/05/2024 TECHNIQUE: XR chest 1V portable Portable AP radiograph of the chest. CLINICAL INDICATION:Female, 54 years old with history of productive cough; FINDINGS: Lungs/Pleura: There is no evidence of pleural effusion, focal consolidation, or pneumothorax. Pulmonary vascularity: Unremarkable. Heart/mediastinum: Cardiomediastinal silhouette is unremarkable. Atherosclerotic calcifications are seen in the aorta. Musculoskeletal: No acute osseous pathology. IMPRESSION: No acute cardiopulmonary disease/process. [facility], , 12/06/2024 11:18 AM
--- NOTE | 2024-12-06 13:12 | P.PN ---
Subjective Progress Note Date: 12/06/24 Hospital course: Patient is a pleasant 54-year-old female with past medical history of MS and previous CVA with right-sided residual deficits. She presented to the emergency department with a chief complaint of bilateral lower extremity weakness right greater than left. Patient reports chronic right sided weakness states she feels it is worse than baseline. Patient also reports low-grade fevers at home and occasional productive cough of phlegm. She denies having any headache, lightheadedness, dizziness, changes in hearing or vision, difficulties with or changes in speech, dysphagia, chest pain, palpitations, shortness of breath, nausea, vomiting, or experiencing any changes and difficulties with her urinary or bowel function. Per facility, patient evaluation in the emergency department. Vital signs upon arrival show blood pressure 131/89, heart rate 113, respiratory rate 18, temp 98.6 F, and SpO2 of 98% on room air. EKG completed showing sinus tachycardia at [address] brain negative for acute intracranial abnormality showing significant prominence of the extra-axial spaces without evidence for acute subdural hematoma. Chest x-ray negative for acute cardiopulmonary process. Labs completed and reviewed. CT showing no significant abnormalities. Coagulation profile normal findings. BMP showing mild hyponatremia with sodium of 129 otherwise normal findings. Blood glucose was 122. Liver profile unremarkable. Troponin 0.016. Influenza A, influenza B, RSV, and COVID PCR negative. Test positive for trace protein, ketones, and nitrites with 6 WBCs. Patient does have low-grade temp but denies urinary complaints. Physical exam: Patient seen and fully evaluated at bedside this morning. She reports her left lower extremity weakness resolved but continues to feel that she has increased weakness from baseline in her right lower extremity. She denies having any other complaints at this time. She does report having a small amount of phlegm brought up with her cough this morning, yellow in color. But she denies having any shortness of breath or any other complaints at this time. Vital signs reviewed and stable. General: Nontoxic, no distress and appears stated age. Derm: Skin warm and dry, normal coloration for ethnicity. Head: Atraumatic, normocephalic and symmetric. Eyes: EOM's intact, no lid lag, and anicteric sclera Mouth: no lip lesions, mucus membranes moist Cardiovascular: regular rate and rhythm with normal S1S2, no murmur, positive posterior tibial pulses bilaterally, and cap refill < 2 seconds. Lungs: Respirations even, regular, and unlabored on room air. Lungs CTA bilaterally, no rhonchi, no rales, no wheezing, and no accessory muscle usage. Abdominal: soft, nontender to palpation, no guarding, no appreciable organomegaly Ext: No gross muscle atrophy, no edema, no contractures. Patient with right- sided weakness. Left upper and lower extremity with full range of motion and moderate strength. Neuro: Speech clear, face symmetrical and CN II-XII grossly intact with no noted focal neuro deficits Psych: Alert and oriented to person, place, time, and situation. Appropriate and pleasant affect. Assessment and Plan of Care: Bilateral lower extremity weakness, worse on right, suspect MS exacerbation History of CVA with right-sided residual deficits -Neurology following, discussed case with Dr. Tucker stated he will be starting patient on high-dose steroids. -Continue neurochecks every 4 hours -PT/OT consulted, appreciate recommendations. -Maintain fall precautions. -Continue aspirin 81 mg daily and atorvastatin 80 mg nightly. Hyponatremia -Improving with IV fluid hydration. Sodium increasing from 129-131. Continue IV fluid hydration with 0.9% normal saline at 100 cc/h for an additional 24 hours. Repeat morning BMP to monitor for resolution of hyponatremia. Sinus tachycardia Low-grade temp -Order placed for repeat chest x-ray which was negative for acute c ardiopulmonary process. Viral panel negative. -Will place order for D-dimer. Asymptomatic bacteriuria -Nitrite positive urinalysis, patient free from any urinary complaints including dysuria, hematuria, frequency, urgency. Data and imaging reviewed: Labs reviewed. CBC unremarkable. BMP showing improvement of hyponatremia with sodium increasing from 1 29-1 31. Blood glucose 100. Urinalysis positive for protein, ketones, nitrites and 6 WBCs. Reviewed. Blood pressure 122/73, heart rate 116, respiratory rate 18, temp 99.4 F, and SpO2 of 95% on room air. Repeat morning chest x-ray negative for acute process. CODE STATUS: Full code DVT prophylaxis: Lovenox Discussed with: Patient, RN, and neurologist Anticipated discharge date: Pending clinical course Anticipated discharge place: Home Patient was seen independently by Nurse Pracitioner. This document was prepared using [employer] dictation software. Please allow for errors in small piece cutter, while rare they do occur. Lance Gauthier NP rendered care for this patient independently, reviewed the findings and plan as documented in the note above and agree with plan. I did not physically speak with or examine the patient on this date. . Objective - Vital Signs Vital signs: Vital Signs Temp 99.4 F 12/06/24 05:27 Pulse 116 H 12/06/24 05:27 Resp 18 12/06/24 05:27 BP 122/73 12/06/24 04:03 Pulse Ox 95 12/06/24 05:27 FiO2 Intake & Output 12/05/24 12/06/24 12/06/24 18:59 06:59 18:59 Output Total 300 Balance -300 Weight 60.328 kg Output: Urine 300 - Labs CBC & Chem 7: 12/06/24 04:29 12/06/24 04:29 Labs: Abnormal Lab Results - Last 24 Hours (Table) 12/05/24 12/05/24 12/06/24 Range/Units 20:07 20:07 04:29 Hct 33.1 L 33.0 L (34.0-46.0) % Lymphocytes # 0.4 L 0.3 L (1.0-4.8) k/uL Sodium 129 L (137-145) mmol/L Carbon Dioxide (22-30) mmol/L Glucose 122 H (74-99) mg/dL Plasma Lactic Acid Nima (0.7-2.0) mmol/L Calcium (8.4-10.2) mg/dL Urine Appearance (Clear) Urine Protein (Negative) Urine Ketones (Negative) Urine Nitrite (Negative) Urine WBC (0-5) /hpf Urine Mucus (None) /hpf Urine Yeast (Budding) (None) /hpf 12/06/24 12/06/24 12/06/24 Range/Units 04:29 04:29 05:30 Hct (34.0-46.0) % Lymphocytes # (1.0-4.8) k/uL Sodium 131 L (137-145) mmol/L Carbon Dioxide 20 L (22-30) mmol/L Glucose 100 H (74-99) mg/dL Plasma Lactic Acid Nima <0.5 L (0.7-2.0) mmol/L Calcium 8.2 L (8.4-10.2) mg/dL Urine Appearance Cloudy H (Clear) Urine Protein Trace H (Negative) Urine Ketones 2+ H (Negative) Urine Nitrite Positive H (Negative) Urine WBC 6 H (0-5) /hpf Urine Mucus Few H (None) /hpf Urine Yeast (Budding) Moderate H (None) /hpf
--- NOTE | 2024-12-06 15:42 | P.CNNES ---
History of Present Illness Consult date: 12/06/24 Requesting physician: Kin Nix Reason for Consult: transient extremity weakness. hx of tia and MS History of Present Illness: This is a 54-year-old woman with history of multiple sclerosis with residual right hemiparesis right lower more than upper, TIA who presents the emergency department because of upper and lower extremity weakness. Patient's is at bedside who provides some of the history. In seems that yesterday in the morning patient had worse right sided weakness and the felt her right arm was flexed and he felt arm was weak. He stated that she took a nap and felt better. Then later during the day she took another nap and when she woke up her bilateral upper and lower extremity were weak. She does have significant weakness of the right side mostly the right lower more than upper and needs assistance with ambulation. is concerned that her presentation seems similar to her TIA in the past. Her strength in the uppers are better compared to her initial presentation but feels she continues to be weak. No new recent infection. She is on IV Briumvi she is supposed to have her next dose end of this month. She had her first IV session in June 2024. Prior to that she was on IV Ocrevus but transition to the new her medication since last duration for the IV infusion. He sees Dr. Romero's team for her neurological issues. A recent MRI of the brain about 2 weeks ago and was told her lesions are stable and no acute lesions. Some of the workup during this hospital visit consisted of: Next Patient has a low-grade fever. White blood cell is within normal limits I reviewed the lab workup Urinalysis seems not remarkable for underlying urinary tract infection. CT of the head is reported as no acute intracranial abnormality. Significant prominence of extra-axial space without evidence of acute subdural hematoma. I reviewed the CT and I agree there is no acute or subacute process. Review of Systems As per HPI. Past Medical History Past Medical History: GERD/Reflux Additional Past Medical History / Comment(s): FREQUENT UTI'S, GALL BLADDER PAIN, UMBILICAL HERNIA. History of Any Multi-Drug Resistant Organisms: None Reported Past Surgical History: Section, Uterine Ablation Additional Past Surgical History / Comment(s): X3 Past Anesthesia/Blood Transfusion Reactions: No Reported Reaction Past Psychological History: No Psychological Hx Reported Past Alcohol Use History: None Reported Past Drug Use History: None Reported - Past Family History Mother Family Medical History: No Reported History Medications and Allergies Home Medications Medication Instructions Recorded Confirmed Type Omeprazole 20 mg PO DAILY 03/17/19 12/06/24 History Aspirin EC [Ecotrin Low Dose] 81 mg PO DAILY 12/06/24 12/06/24 History DULoxetine HCL [Cymbalta] 30 mg PO BID 12/06/24 12/06/24 History Docusate [Colace] 100 mg PO DAILY 12/06/24 12/06/24 History Linaclotide [Linzess] 290 mcg PO DAILY 12/06/24 12/06/24 History Loratadine [Claritin] 10 mg PO DAILY 12/06/24 12/06/24 History Lovastatin [Mevacor] 20 mg PO HS 12/06/24 12/06/24 History modafiniL [Provigil] 100 mg PO DAILY 12/06/24 12/06/24 History Allergies Allergy/AdvReac Type Severity Reaction Status Date / Time No Known Allergies Allergy Verified 12/06/24 07:19 Physical Examination - Vital Signs Vital Signs: Vital Signs Temp Pulse Resp BP Pulse Ox 12/06/24 15:06 98.8 F 111 H 18 119/69 92 L 12/06/24 14:16 116 H 18 133/80 12/06/24 05:27 99.4 F 116 H 18 95 12/06/24 04:03 99.7 F H 123 H 19 122/73 96 12/06/24 03:10 100.3 F H 140 H 16 130/77 93 L 12/06/24 02:00 115 H 18 133/79 97 12/06/24 01:00 105 H 18 128/70 97 12/05/24 22:00 110 H 18 133/70 98 12/05/24 19:28 98.6 F 113 H 18 131/89 98 Intake and Output 12/06/24 12/06/24 12/06/24 06:59 14:59 22:59 Output Total 300 Balance -300 Output: Urine 300 General: Lying in bed and is not in acute distress. Neuro: The patient is awake alert oriented to self place and time. Is following simple commands. No aphasia. No neglect. Pupils are round 4 mm bilaterally and reactive to light. Visual saldana are full to confrontation. Extraocular was intact no nystagmus. No facial weakness. No dysarthria Motor the strength was hard to assess individual muscle strength because of her cooperation and weakness. Patient has significant weakness in the right lower extremity more than the upper and per and per usually that is her baseline but he feels her right upper extremity seems weaker than normal. On examination she is able to lift up the right upper extremity but has poor handgrip about a 4-to 4+. Left upper extremity strength appears 5 - distally but patient has significant poor dexterity over the right hand more than the left but on the left the feels it is new. Right lower she minimally moved her right ankle and her stated that usually baseline Left lower extremity appears normal. Has increase tone on the right side. Sensation is normal to touch throughout. Had hard time assessing rest because of her cooperation. Results - Laboratory Findings CBC and BMP: 12/06/24 04:29 12/06/24 04:29 Abnormal Lab Findings: Abnormal Labs 12/05/24 12/05/24 12/06/24 20:07 20:07 04:29 Hct 33.1 L 33.0 L Lymphocytes # 0.4 L 0.3 L Sodium 129 L Carbon Dioxide Glucose 122 H Plasma Lactic Acid Nima Calcium Urine Appearance Urine Protein Urine Ketones Urine Nitrite Urine WBC Urine Mucus Urine Yeast (Budding) 12/06/24 12/06/24 12/06/24 04:29 04:29 05:30 Hct Lymphocytes # Sodium 131 L Carbon Dioxide 20 L Glucose 100 H Plasma Lactic Acid Nima <0.5 L Calcium 8.2 L Urine Appearance Cloudy H Urine Protein Trace H Urine Ketones 2+ H Urine Nitrite Positive H Urine WBC 6 H Urine Mucus Few H Urine Yeast (Budding) Moderate H Assessment and Plan Assessment: This is a 54-year-old woman with history of MS who presented emergency department because of bilateral upper and lower extremity weakness per the . She has low-grade fever Concern for exacerbation of multiple sclerosis. Rule out pseudo exacerbation especially with a low-grade fever. Per the primary team she had 2 chest x-ray which were unremarkable. Urine analysis was unremarkable. Underlying history of multiple sclerosis with residual right hemiparesis mostly the right lower more than the upper. History of TIA Plan: Ordered MRI of the brain and cervical spine with and without to rule out any new lesions. Per the patient had MRI of the brain about 2 weeks ago at her outpatient neurologist and was told it stable I started the patient on IV Solu-Medrol with today 1 g then starting tomorrow 500 mg every 12 hours for 3 to 5 days. Seems that the patient's is concerned about a TIA since he feels this presentation seems similar to the past. Patient was given aspirin 325 once in the ED then was given aspirin 81 mg daily as well as Lipitor 80 mg nightly by the primary team If patient does have a stroke on the MRI then we will get the rest of the stroke workup PT OT are consulted Blood cultures are ordered and pending Recommend sugar monitoring and correction especially since he is on IV steroids and will defer that to the primary team For GI axis patient is on Protonix Upon discharge recommend the patient to follow-up with her outpatient neurologist, Dr. Romero's team within 2 weeks. She is supposed to have her IV infusion for her multiple sclerosis towards the end of this month. For the rest of the medical management to primary and other special. The plan discussed with the patient and her who is at bedside Thank you for the consultation Time with Patient: Greater than 30
[2024-12-06] MEDS: methylPREDNISolone SOD SUCCIN 1,000 MG in SODIUM CHLORIDE 0.9% 250 ML IVPB STA (16:48)
[2024-12-06] MEDS: ATORVASTATIN 80 MG TAB PO SCH (21:28)
[2024-12-07 07:24] LABS: HCT 34.7 % (34.0-46.0); HGB 11.5 gm/dL (11.4-16.0); MCH 28.9 pg (25.0-35.0); MCV 87.5 fL (80.0-100.0); Mean Platelet Volume 8.3; Platelet Count 195 k/uL (150-450); RBC 3.97 m/uL (3.80-5.40); RDW 12.7 % (11.5-15.5); WBC 6.7 k/uL (3.8-10.6)
[2024-12-07 07:45] LABS: African American GFR (CKD) >90 (>60 ml/min/1.73 sqM); Anion Gap 8 mmol/L; Blood Urea Nitrogen 13 mg/dL (7-17); Calcium 8.3 mg/dL (8.4-10.2); Carbon Dioxide 18 mmol/L (22-30); Chloride 106 mmol/L (98-107); Glucose 114 mg/dL (74-99); Non-African American GFR(CKD) >90 (>60 ml/min/1.73 sqM); Potassium 4.1 mmol/L (3.5-5.1); Sodium 132 mmol/L (137-145)
[2024-12-07] MEDS: methylPREDNISolone SOD SUCCIN 500 MG in SODIUM CHLORIDE 0.9% 100 ML IVPB SCH (08:39)
--- NOTE | 2024-12-07 10:12 | CT ---
EXAMINATION TYPE: CT chest angio for PE CT DLP: 236.9 mGycm, Automated exposure control for dose reduction was used. DATE OF EXAM: 12/07/2024 9:56 AM COMPARISON: Chest radiograph 12/06/2024 CLINICAL INDICATION:Female, 54 years old with history of Elevated d-dimer, low grade temp, tachycardi a; ezequiel TECHNIQUE/CONTRAST: CTA scan of the thorax is performed with IV Contrast, patient injected with 100ml mL of Isovue 370, p ulmonary embolism protocol. MIP images are created and reviewed. FINDINGS: Pulmonary Artery: There is no evidence for a filling defect within the pulmonary vasculature to sugge st acute pulmonary embolism. The pulmonary artery is of normal size. Lungs/Pleura: No pneumothorax or pleural effusion. Dependent bibasilar subsegmental atelectasis. Mild centrilobular emphysematous changes. There are 3 nodular opacities identified within the right lung apex measuring 0.8, 0.5, and 0.5 cm (series 406, image 38, 32, and 42 respectively). The largest demo nstrates central calcification. Minimal biapical pleural-parenchymal scarring. Airway: Large airways are patent. Heart: Heart is within normal limits for size.. Vasculature: No evidence of aortic aneurysm. Mediastinum: No evidence of adenopathy. Musculoskeletal: No acute osseous abnormalities. No aggressive osseous lesion. Soft Tissues: Unremarkable. Lower neck: No significant findings. Upper Abdomen: Right renal exophytic 1.3 cm cyst. IMPRESSION: 1. No evidence of pulmonary embolism. 2. Mild dependent bibasilar subsegmental atelectasis/consolidation. 3. Few subcentimeter nodular opacities within the right lung apex. Follow-up CT chest in 3-6 months i s recommended. 4. Mild COPD changes. [facility], , 12/07/2024 10:10 AM
--- NOTE | 2024-12-07 13:38 | P.PN ---
Subjective Progress Note Date: 12/07/24 Hospital course: Patient is a pleasant 54-year-old female with past medical history of MS and previous CVA with right-sided residual deficits. She presented to the emergency department with a chief complaint of bilateral lower extremity weakness right greater than left. Patient reports chronic right sided weakness states she feels it is worse than baseline. Patient also reports low-grade fevers at home and occasional productive cough of phlegm. She denies having any headache, lightheadedness, dizziness, changes in hearing or vision, difficulties with or changes in speech, dysphagia, chest pain, palpitations, shortness of breath, nausea, vomiting, or experiencing any changes and difficulties with her urinary or bowel function. Per facility, patient evaluation in the emergency department. Vital signs upon arrival show blood pressure 131/89, heart rate 113, respiratory rate 18, temp 98.6 F, and SpO2 of 98% on room air. EKG completed showing sinus tachycardia at [address] brain negative for acute intracranial abnormality showing significant prominence of the extra-axial spaces without evidence for acute subdural hematoma. Chest x-ray negative for acute cardiopulmonary process. Labs completed and reviewed. CT showing no significant abnormalities. Coagulation profile normal findings. BMP showing mild hyponatremia with sodium of 129 otherwise normal findings. Blood glucose was 122. Liver profile unremarkable. Troponin 0.016. Influenza A, influenza B, RSV, and COVID PCR negative. Urinalysis positive for trace protein, ketones, and nitrites with 6 WBCs. Patient does have low-grade temp but denies urinary complaints. Physical exam: Patient seen and fully evaluated at bedside this morning. She reports full resolution of lower extremity and right upper extremity weakness and reports she is back at her baseline. Patient reports symptoms resolved a couple hours after receiving initial loading dose of steroids. She continues to deny having any urinary symptoms including frequency, urgency, dysuria, flank pain, or suprapubic tenderness. She does report continued productive cough but improving. Discussed CT results with patient showing few subcentimeter nodular opacities, patient reports this is known and chronic finding and has been there for years. Discussed with patient recommend follow-up CT for monitoring/surveillance in 3 to 6 months. Vital signs reviewed and stable. General: Nontoxic, no distress and appears stated age. Derm: Skin warm and dry, normal coloration for ethnicity. Head: Atraumatic, normocephalic and symmetric. Eyes: EOM's intact, no lid lag, and anicteric sclera Mouth: no lip lesions, mucus membranes moist Cardiovascular: regular rate and rhythm with normal S1S2, no murmur, positive posterior tibial pulses bilaterally, and cap refill < 2 seconds. Lungs: Respirations even, regular, and unlabored on room air. Lungs CTA bilaterally, no rhonchi, no rales, no wheezing, and no accessory muscle usage. Abdominal: soft, nontender to palpation, no guarding, no appreciable organomegaly Ext: No gross muscle atrophy, no edema, no contractures. Mild right right lower extremity weakness, patient reports back at baseline and ambulating independently without difficulties. Full strength left upper and left lower ex tremity and moderate strength in right upper extremity. Neuro: Speech clear, face symmetrical and CN II-XII grossly intact with no noted focal neuro deficits Psych: Alert and oriented to person, place, time, and situation. Appropriate and pleasant affect. Assessment and Plan of Care: Bilateral lower extremity weakness, worse on right, suspect MS exacerbation History of CVA with right-sided residual deficits -Neurology following, discussed case with Dr. Tucker recommending continuing Solu-Medrol 500 mg twice daily completion of MRI. -MRI brain and cervical spine to be completed -Continue neurochecks every 4 hours -PT/OT consulted, appreciate recommendations. -Maintain fall precautions. -Continue aspirin 81 mg daily and atorvastatin 80 mg nightly. Hyponatremia -Improving with IV fluid hydration. Sodium increasing from initial 129 up to 132 this morning. Continue IV fluid hydration with 0.9% normal saline at 100 cc/h for an additional 24 hours. Repeat morning BMP to monitor for resolution of hyponatremia. Sinus tachycardia Low-grade temp -Order placed for repeat chest x-ray which was negative for acute cardiopulmonary process. Viral panel negative. -D-dimer elevated at 0.72. CTA Negative for pulmonary emboli revealing mild COPD changes and bibasilar atelectasis with few subcentimeter nodular opacities within the right lung apex. Asymptomatic bacteriuria -Nitrite positive urinalysis, patient free from any urinary complaints including dysuria, hematuria, frequency, urgency. Pulmonary nodules -CTA revealed few subcentimeter nodular opacities within the right lung apex, discussed with patient recommend outpatient follow-up CT in 3 to 6 months for surveillance. Data and imaging reviewed: Labs reviewed. D-dimer elevated at 0.72. CBC unremarkable. BMP showing improvement of hyponatremia with sodium of 132 and hypocarbia with bicarb of 18. Blood glucose 114. CTA Negative for pulmonary emboli revealing mild COPD changes and bibasilar atelectasis with few subcentimeter nodular opacities within the right lung apex. Vital signs reviewed. Blood pressure 111/66, heart rate 106, respiratory rate 17, temp 98.2 F, and SpO2 of 98% on 2 L. CODE STATUS: Full code DVT prophylaxis: Lovenox Discussed with: Patient, RN, and neurologist Anticipated discharge date: Pending clinical course Anticipated discharge place: Home Patient was seen independently by Nurse Pracitioner. This document was prepared using [employer] dictation software. Please allow for errors in director radio, while rare they do occur. Lance Gauthier NP rendered care for this patient independently, reviewed the findings and plan as documented in the note above and agree with plan. I did not physically speak with or examine the patient on this date. . Objective - Vital Signs Vital signs: Vital Signs Temp 98.2 F 12/07/24 08:35 Pulse 106 H 12/07/24 08:35 Resp 17 12/07/24 08:35 BP 111/66 12/07/24 08:35 Pulse Ox 98 12/07/24 08:35 FiO2 Intake & Output 12/06/24 12/07/24 12/07/24 18:59 06:59 18:59 Output Total 650 Balance -650 Weight 62.5 kg 62 kg Output: Urine 650 Other: Voiding Method External Catheter External Catheter - Labs CBC & Chem 7: 12/07/24 06:39 12/07/24 06:39 Labs: Abnormal Lab Results - Last 24 Hours (Table) 12/06/24 12/07/24 Range/Units 15:33 06:39 D-Dimer 0.72 H (<0.60) mg/L FEU Sodium 132 L (137-145) mmol/L Carbon Dioxide 18 L (22-30) mmol/L Glucose 114 H (74-99) mg/dL Calcium 8.3 L (8.4-10.2) mg/dL Microbiology - Last 24 Hours (Table) 12/06/24 11:48 Gram Stain - Preliminary Sputum
--- NOTE | 2024-12-07 15:34 | P.PN ---
Subjective Progress Note Date: 12/07/24 I am following up with the patient and the patient states she is drastically better today compared to yesterday. She feels the steroid is drastically helping her and her left-sided weakness is normal and she feels her right sided weakness from prior is improving even. Denies new neurological deficit. Objective - Vital Signs Vital signs: Vital Signs Temp 98.2 F 12/07/24 08:35 Pulse 96 12/07/24 15:07 Resp 15 12/07/24 15:07 BP 147/81 12/07/24 15:07 Pulse Ox 98 12/07/24 15:07 FiO2 Intake & Output 12/06/24 12/07/24 12/07/24 18:59 06:59 18:59 Output Total 650 Balance -650 Weight 62.5 kg 62 kg Output: Urine 650 Other: Voiding Method External Catheter External Catheter Toilet # Voids 2 - Exam General: Lying in bed and is not in acute distress. Neuro: The patient is awake alert oriented to self place and time. Is following simple commands. No aphasia. No neglect. Pupils are round 4 mm bilaterally and reactive to light. Visual saldana are full to confrontation. Extraocular was intact no nystagmus. No facial weakness. No dysarthria Motor the strength: Right is 4+. Left is 5/5. She feels strength is drastically better. Sensation is normal to touch throughout. Had hard time assessing rest because of her cooperation. Some of the workup during this hospital visit consisted of: Next Patient has a low-grade fever. White blood cell is within normal limits I reviewed the lab workup Urinalysis seems not remarkable for underlying urinary tract infection. CT of the head is reported as no acute intracranial abnormality. Significant prominence of extra-axial space without evidence of acute subdural hematoma. I reviewed the CT and I agree there is no acute or subacute process. - Labs CBC & Chem 7: 12/07/24 06:39 12/07/24 06:39 Labs: Abnormal Lab Results - Last 24 Hours (Table) 12/06/24 12/07/24 Range/Units 15:33 06:39 D-Dimer 0.72 H (<0.60) mg/L FEU Sodium 132 L (137-145) mmol/L Carbon Dioxide 18 L (22-30) mmol/L Glucose 114 H (74-99) mg/dL Calcium 8.3 L (8.4-10.2) mg/dL Microbiology - Last 24 Hours (Table) 12/06/24 04:33 Blood Culture - Preliminary Blood 12/06/24 11:48 Gram Stain - Preliminary Sputum Sputum Culture - Preliminary Assessment and Plan Assessment: This is a 54-year-old woman with history of MS who presented emergency department because of bilateral upper and lower extremity weakness per the . She has low-grade fever Concern for exacerbation of multiple sclerosis. Rule out pseudo exacerbation especially with a low-grade fever. Per the primary team she had 2 chest x-ray which were unremarkable. Urine analysis was unremarkable---Today is drastically after steroids. Underlying history of multiple sclerosis with residual right hemiparesis mostly the right lower more than the upper. History of TIA Plan: Pending MRI of the brain and cervical spine with and without to rule out any new lesions. Per the patient had MRI of the brain about 2 weeks ago at her outpatient neurologist and was told it stable I started the patient on IV Solu-Medrol with 1 g on 12/06/2024 then today 500 mg every 12 hours for 3 to 5 days (today is day #2). If she continues to be doing well by tomorrow will consider stopping. Seems that the patient's is concerned about a TIA since he feels this presentation seems similar to the past. Patient was given aspirin 325 once in the ED then was given aspirin 81 mg daily as well as Lipitor 80 mg nightly by th e primary team If patient does have a stroke on the MRI then we will get the rest of the stroke workup PT OT are consulted Blood cultures are ordered and pending Recommend sugar monitoring and correction especially since he is on IV steroids and will defer that to the primary team For GI axis patient is on Protonix Upon discharge recommend the patient to follow-up with her outpatient neurologist, Dr. Romero's team within 2 weeks. She is supposed to have her IV infusion for her multiple sclerosis towards the end of this month. Will defer the rest of the medical management to primary and other specialist. Time with Patient: Less than 30
[2024-12-08 13:24] VITALS: TEMP 97.8
[2024-12-08] MEDS: methylPREDNISolone SOD SUCCIN 500 MG in SODIUM CHLORIDE 0.9% 100 ML IVPB STA (13:28)
--- NOTE | 2024-12-08 14:56 | MR ---
EXAMINATION TYPE: MR brain/cspine wo/w DATE OF EXAM: 12/08/2024 1:11 PM COMPARISON: CT brain 12/05/2024 CLINICAL INDICATION: Female, 54 years old with history of right and left sided weakness. Hx of MS an d TIA, Right and Left sided weakness, HX of MS and TIA IV Contrast: 6ml cc Gadobutrol (None if empty) TECHNIQUE: Multiplanar, multisequence images of the brain and cervical spine is performed without and with IV co ntrast, utilizing 6ml mL intravenous Gadobutrol . FINDINGS: Motion degraded examination. The street-white junctions, ventricular system, basal cisterns appear unremarkable. Prominence of the e xtra-axial spaces is redemonstrated without evidence for subdural hematoma. There is some atrophy of the bilateral frontal lobes. Diffusion-weighted imaging shows no evidence of restricted diffusion to suggest acute/subacute infarct. Intracranial arterial flow voids are maintained. Midline structures s how no abnormality. Patchy areas of high T2/FLAIR signal intensity are seen within the periventricular and subcortical wh ite matter of the bilateral frontal temporal and parietal lobes. Some of the periventricular white ma tter demonstrates perpendicular orientation consistent with Paz's fingers. Some of the white matte r changes are confluent. Examples include a right frontal cortical white matter lesion measuring up t o 0.9 cm (series 602, image 21) and a left periventricular frontoparietal region 1.9 cm white matter lesion (series 601, image 108). The susceptibility weighted images do not reveal any evidence for micro-hemorrhage. After administrat ion of gadolinium, no abnormal enhancement is seen to suggest active demyelination. The bone marrow signal is within normal limits. The paranasal sinuses and globes are unremarkable. Alignment: The cervical vertebral bodies have preserved heights. Alignment is within normal limits gi yareli patient positioning. Bones: Bone signal is within normal limits. Cord: The spinal cord is unremarkable with regards to their signal intensity and morphology. No defin itive lesions identified. No contrast enhancement identified. Discs: Intervertebral disc signal is maintained. C2-C3: No significant disc pathology. The spinal canal is patent. No neural foraminal stenosis. C3-C4: No significant disc pathology. The spinal canal is patent. No neural foraminal stenosis. C4-C5: No significant disc pathology. The spinal canal is patent. No neural foraminal stenosis. C5-C6: No significant disc pathology. The spinal canal is patent. No neural foraminal stenosis. C6-C7: No significant disc pathology. The spinal canal is patent. No neural foraminal stenosis. C7-T1: No significant disc pathology. The spinal canal is patent. No neural foraminal stenosis. Other: None. IMPRESSION: 1. No evidence of intracranial mass, acute/subacute infarct, or abnormal enhancement. 2. Nonspecific white matter changes within the cerebral parenchyma, likely related to reported multip le sclerosis. No cervical spinal cord lesions identified. No enhancement to suggest active demyelinat ion. 3. No evidence for disc herniation or significant spinal canal stenosis. 4. Prominent bilateral extra-axial spaces without evidence for subdural hematoma. Atrophy of the bila teral frontal lobes. [facility], , 12/08/2024 2:53 PM
--- NOTE | 2024-12-08 15:58 | P.PN ---
Subjective Progress Note Date: 12/08/24 I am following-up with patient and she feels drastically better and today is last dose of Steroid today. Objective - Vital Signs Vital signs: Vital Signs Temp 97.8 F 12/08/24 13:19 Pulse 95 12/08/24 13:19 Resp 15 12/08/24 13:19 BP 119/76 12/08/24 13:19 Pulse Ox 95 12/08/24 13:19 FiO2 Intake & Output 12/07/24 12/08/24 12/08/24 18:59 06:59 18:59 Intake Total 59 Balance 59 Weight 59.7 kg Intake: Oral 59 Other: Voiding Method Toilet Toilet Toilet # Voids 2 1 2 - Exam General: Lying in bed and is not in acute distress. Neuro: The patient is awake alert oriented to self place and time. Is following simple commands. No aphasia. No neglect. Pupils are round 4 mm bilaterally and reactive to light. Visual saldana are full to confrontation. Extraocular was intact no nystagmus. No facial weakness. No dysarthria Motor the strength: Right upper is 4+ to 5-. Has right foot drop. Right lower extremity is 4+. Left is 5/5. She feels strength is drastically better. Sensation is normal to touch throughout. Had hard time assessing rest because of her cooperation. Some of the workup during this hospital visit consisted of: Next Patient has a low-grade fever. White blood cell is within normal limits I reviewed the lab workup Urinalysis seems not remarkable for underlying urinary tract infection. CT of the head is reported as no acute intracranial abnormality. Significant prominence of extra-axial space without evidence of acute subdural hematoma. I reviewed the CT and I agree there is no acute or subacute process. - Labs CBC & Chem 7: 12/07/24 06:39 12/07/24 06:39 Labs: Microbiology - Last 24 Hours (Table) 12/06/24 04:33 Blood Culture - Preliminary Blood 12/06/24 11:48 Gram Stain - Final Sputum Sputum Culture - Final Assessment and Plan Assessment: This is a 54-year-old woman with history of MS who presented emergency department because of bilateral upper and lower extremity weakness per the . She has low-grade fever Concern for exacerbation of multiple sclerosis. Rule out pseudo exacerbation especially with a low-grade fever. Per the primary team she had 2 chest x-ray which were unremarkable. Urine analysis was unremarkable--Is drastically better after steroids. Underlying history of multiple sclerosis with residual right hemiparesis mostly the right lower more than the upper. History of TIA Plan: Pending MRI of the brain and cervical spine with and without to rule out any new lesions. Per the patient had MRI of the brain about 2 weeks ago at her outpatient neurologist and was told it stable I started the patient on IV Solu-Medrol with 1 g on 12/06/2024 then today 500 mg every 12 hours for 3 to 5 days (today is day #3). Today is last day and will give her her last 500mg steroid earlier than night. Seems that the patient's is concerned about a TIA since he feels this presentation seems similar to the past. Patient was given aspirin 325 once in the ED then was given aspirin 81 mg daily as well as Lipitor 80 mg nightly by the primary team If patient does have a stroke on the MRI then we will get the rest of the stroke workup PT OT are consulted Blood cultures are ordered and pending Recommend sugar monitoring and correction especially since he is on IV steroids and will defer that to the primary team For GI axis patient is on Protonix Upon discharge recommend the patient to follow-up with her outpatient neurologist, Dr. Romero's team within 2 weeks. She is supposed to have her IV infusion for her multiple sclerosis towards the end of this month. Will defer the rest of the medical management to primary and other specialist. If MRI are negative for stroke then clear from neurological perspective. Time with Patient: Less than 30
[2024-12-08 16:03] VITALS: BP 122/69; PULSE 80; RESP 17
--- NOTE | 2024-12-08 16:04 | P.DS ---
Providers Date of admission: 12/05/24 21:23 Expected date of discharge: 12/08/24 Attending physician: Rajendra Mejia MD Consults: 12/05/24 21:21 Consult Physician Urgent Consulting Provider: Yoni Coronado Consult Reason/Comments: Transient extremity weakness, possible TIA, history of MS Do you want consulting provider notified?: Yes Primary care physician: Marc Trevizo Hospital Course: Discharge Diagnosis: Bilateral lower extremity weakness, worse on right, suspect MS exacerbation. Symptoms resolved after administration of high-dose steroids. MRI brain and cervical spine was completed showing no evidence of intracranial mass, acute/subacute infarct, or abnormal enhancement reporting nonspecific white matter changes within the cerebral parenchyma likely related to multiple sclerosis, no cervical cord lesions and no enhancement to suggest active demyelination, no evidence for disc herniation or significant spinal canal stenosis, and prominent bilateral extra-axial spaces without evidence for subdural hematoma, atrophy of bilateral frontal lobes.. Neurology evaluated stating patient is good to stop steroids at this time and recommend outpatient follow-up with neurologist within a week. History of CVA with right-sided residual deficits Hyponatremia Sinus tachycardia Low-grade temp, isolated event. No signs of infection. -Order placed for repeat chest x-ray which was negative for acute cardiopulmonary process. Viral panel negative. Elevated D-dimer CTA Negative for pulmonary emboli revealing mild COPD changes and bibasilar atelectasis with few subcentimeter nodular opacities within the right lung apex. Asymptomatic bacteriuria. Nitrite positive urinalysis, patient free from any urinary complaints including dysuria, hematuria, frequency, urgency. Pulmonary nodules. CTA revealed few subcentimeter nodular opacities within the right lung apex, discussed with patient recommend outpatient follow-up CT in 3 to 6 months for surveillance. Patient reports this is a previously known finding and has been monitoring. Hospital course: Patient is a pleasant 54-year-old female with past medical history of MS and previous CVA with right-sided residual deficits. She presented to the emergency department with a chief complaint of bilateral lower extremity weakness right greater than left. Patient reports chronic right sided weakness states she feels it is worse than baseline. Patient also reports low-grade fevers at home and occasional productive cough of phlegm. She denies having any headache, lightheadedness, dizziness, changes in hearing or vision, difficulties with or changes in speech, dysphagia, chest pain, palpitations, shortness of breath, nausea, vomiting, or experiencing any changes and difficulties with her urinary or bowel function. Per facility, patient evaluation in the emergency department. Vital signs upon arrival show blood pressure 131/89, heart rate 113, respiratory rate 18, temp 98.6 F, and SpO2 of 98% on room air. EKG completed showing sinus tachycardia at [address] brain negative for acute intracranial abnormality showing significant prominence of the extra-axial spaces without evidence for acute subdural hematoma. Chest x-ray negative for acute cardiopulmonary process. Labs completed and reviewed. CT showing no significant abnormalities. Coagulation profile normal findings. BMP showing mild hyponatremia with sodium of 129 otherwise normal findings. Blood glucose was 122. Liver profile unremarkable. Troponin 0.016. Influenza A, influenza B, RSV, and COVID PCR negative. Urinalysis positive for trace protein, ketones, and nitrites with 6 WBCs. Patient did have isolated low-grade temp but denied and continues to deny urinary complaints.Symptoms of lower extremity weakness resolved after administration of high-dose steroids. MRI brain and cervical spine was completed showing no evidence of intracranial mass, acute/subacute infarct, or abnormal enhancement reporting nonspecific white matter changes within the cerebral parenchyma likely related to multiple sclerosis, no cervical cord lesions and no enhancement to suggest active demyelination, no evidence for disc herniation or significant spinal canal stenosis, and prominent bilateral extra-axial spaces without evidence for subdural hematoma, atrophy of bilateral frontal lobes.. Neurology evaluated stating patient is good to stop steroids at this time and recommend outpatient follow-up with neurologist within a week. Patient is medically optimized at this time reports being at her baseline and free from any complaints. Patient stable for discharge and to follow-up outpatient with PCP in 1 to 2 days and with neurology in 1 week. Physical exam: Vital signs reviewed and stable. General: Nontoxic, no distress and appears stated age. Derm: Skin warm and dry, normal coloration for ethnicity. Head: Atraumatic, normocephalic and symmetric. Eyes: EOM's intact, no lid lag, and anicteric sclera Mouth: no lip lesions, mucus membranes moist Cardiovascular: regular rate and rhythm with normal S1S2, no murmur, positive posterior tibial pulses bilaterally, and cap refill < 2 seconds. Lungs: Respirations even, regular, and unlabored on room air. Lungs CTA bilaterally, no rhonchi, no rales, no wheezing, and no accessory muscle usage. Abdominal: soft, nontender to palpation, no guarding, no appreciable organomegaly Ext: No gross muscle atrophy, no edema, no contractures. Mild right right lower extremity weakness, patient reports back at baseline and ambulating independently without difficulties. Full strength left upper and left lower extremity and moderate strength in right upper extremity. Neuro: Speech clear, face symmetrical and CN II-XII grossly intact with no noted focal neuro deficits Psych: Alert and oriented to person, place, time, and situation. Appropriate and pleasant affect. A total of 34 minutes of time were spent preparing this complex discharge summary. Pt was discharged on 12/08/2024 at 4:01 PM. Patient was seen independently by Nurse Practitioner. This document was prepared using [employer] dictation software. Please allow for errors in temporary help agency referral clerk while rare they do occur. Lance Gauthier NP rendered care for this patient independently, reviewed the findings and plan as documented in the note above. I did not physically speak with or examine the patient on this date. Patient Condition at Discharge: Stable Plan - Discharge Summary Discharge Rx Participant: Yes New Discharge Prescriptions: Continue Omeprazole 20 mg PO DAILY Linaclotide [Linzess] 290 mcg PO DAILY Docusate [Colace] 100 mg PO DAILY modafiniL [Provigil] 100 mg PO DAILY Lovastatin [Mevacor] 20 mg PO HS DULoxetine HCL [Cymbalta] 30 mg PO BID Loratadine [Claritin] 10 mg PO DAILY Aspirin EC [Ecotrin Low Dose] 81 mg PO DAILY Discharge Medication List Omeprazole 20 mg PO DAILY 03/17/19 [History] Aspirin EC [Ecotrin Low Dose] 81 mg PO DAILY 12/06/24 [History] DULoxetine HCL [Cymbalta] 30 mg PO BID 12/06/24 [History] Docusate [Colace] 100 mg PO DAILY 12/06/24 [History] Linaclotide [Linzess] 290 mcg PO DAILY 12/06/24 [History] Loratadine [Claritin] 10 mg PO DAILY 12/06/24 [History] Lovastatin [Mevacor] 20 mg PO HS 12/06/24 [History] modafiniL [Provigil] 100 mg PO DAILY 12/06/24 [History] Follow up Appointment(s)/Referral(s): Marc Trevizo MD [Primary Care Provider] - 12/17/24 8:00 am Conner Romero MD [Medical Doctor] - 1 Week (Office stated that they will call you with a hospital follow up apt. ) Patient Instructions/Handouts: Multiple Sclerosis (DC) Activity/Diet/Wound Care/Special Instructions: Activity: As tolerated. Take breaks as needed. Diet: Heart healthy and carb consistent diet. Special Instructions: Take all of your medications as directed and remember to keep all of your doctor's appointments and follow-up as needed. Thank you for allowing us to participate in your care, it was truly a pleasure having you for our patient!!! Discharge Disposition: HOME SELF-CARE
== END 2024-12-08 16:35 | disposition home or self-care (01) ==
LOC: EC 19:27 → OBSVTOIN 21:23 → INTOOBSV 21:23 → 3SCARD 21:23
PROVIDERS: ADMIT Internal Medicine; ATTEND Internal Medicine
DX: R53.1 Weakness (principal); E87.1 Hypo-osmolality and hyponatremia; I69.351 Hemiplegia and hemiparesis following cerebral infarction affecting right dominant side; R50.9 Fever, unspecified; R00.0 Tachycardia, unspecified; R79.89 Other specified abnormal findings of blood chemistry; R82.71 Bacteriuria; R91.8 Other nonspecific abnormal finding of lung field; G35 Multiple sclerosis; K21.9 Gastro-esophageal reflux disease without esophagitis; Z79.899 Other long term (current) drug therapy; Z79.82 Long term (current) use of aspirin; Z87.440 Personal history of urinary (tract) infections
CPT/HCPCS: 96361 ×3; 96365 ×3; 96366 ×2; 96372 ×3; 99285; 36415; 94760; 93005; 97116; 97162; 97530; 97165; 85379; 80053; 80048 ×2; 83605; 84484; 85025 ×2; 85027; 85610; 85730; 81001; 87040; 87070; 87205; 84145; 87636; 71045; 71046; 70450; 71275; 70553; 72156; G0378 ×4; J1650 ×3; Q9967; A9585; J2919 ×3; 96360